=== PATIENT | male | born 1970 | race Caucasian/White ===

== ENCOUNTER 2021-08-19 21:42 | Emergency (ER) | payer OTHER ==
[~2021-08-19] VITALS: Ht 182.9 cm; Wt 81.7 kg
[2021-08-19] MEDS ORDERED: ADDERALL 20 MG20 MG PO (22:21)
[2021-08-20 00:01] VITALS: BP 153/70
== END 2021-08-20 00:02 | disposition home or self-care (01) ==
LOC: ER 21:42
DX: F41.9 Anxiety disorder, unspecified (principal); Z79.899 Other long term (current) drug therapy